=== PATIENT | female | born 1995 | race Hispanic/Latino ===

== ENCOUNTER 2023-05-05 17:59 | Emergency (ER) | payer OTHER ==
[~2023-05-05] VITALS: Ht 157.5 cm; Wt 58.1 kg
[2023-05-05 18:00] VITALS: BP 131/87; PULSE 81; RESP 16
[2023-05-05 19:18] LABS: BASOPHILS # (AUTO) 0.03 K/uL (0.00-0.20); BASOPHILS % (AUTO) 0.3 % (0.0-5.0); EOSINOPHILS # (AUTO) 0.03 K/uL (0.00-0.70); EOSINOPHILS % (AUTO) 0.3 % (0.0-8.0); HEMATOCRIT 45.2 % (36-48); IMMATURE GRANULOCYTE ABSOLUTE 0.04 K/uL (0-1); LYMPHOCYTES # (AUTO) 1.9 K/uL (1.0-4.8); LYMPHOCYTES % (AUTO) 17.6 % (21.0-51.0); MEAN CORPUSCULAR HEMOGLOBIN 32.3 pg (27.0-33.0); MEAN CORPUSCULAR HGB CONC 34.5 g/dL (32.0-36.0); MEAN CORPUSCULAR VOLUME 93.6 fL (79-99); MONOCYTES # (AUTO) 1.1 K/uL (0.1-1.0); MONOCYTES % (AUTO) 9.8 % (3.0-13.0); NEUTROPHILS # (AUTO) 7.6 K/uL (1.8-7.7); NEUTROPHILS % (AUTO) 71.6 % (40.0-77.0); PLATELET COUNT (AUTO) 275 K/uL (130-400); RED BLOOD CELL COUNT(AUTO) 4.83 MIL/uL (4.00-5.50); RED CELL DISTRIBUTION WIDTH 11.9 % (11.0-15.5); WHITE BLOOD COUNT (AUTO) 10.7 K/uL (4.8-10.8)
[2023-05-05 19:26] LABS: CREATININE 0.9 mg/dL (0.5-1.5); POTASSIUM 3.7 mmol/L (3.5-5.1)
[2023-05-05 19:29] LABS: ADD UA MICROSCOPIC YES; APPEARANCE,URINE CLOUDY (CLEAR); BACTERIA,URINE MOD /HPF (None Seen); BILIRUBIN,URINE NEGATIVE (NEGATIVE); COLOR,URINE YELLOW (YELLOW); GLUCOSE, URINE (UA) NEGATIVE (NEGATIVE); KETONES,URINE 100 mg/dL (NEGATIVE); LEUKOCYTE ESTERASE ,URINE 75 Leu/uL (NEGATIVE); MUCUS,URINE FEW LPF (None Seen); NITRATE,URINE NEGATIVE (NEGATIVE); PH,URINE 5.5 (5.0-8.0); PROTEIN,URINE 30 mg/dL (NEGATIVE); SQUAMOUS EPITHELIAL CELL,UR MANY /HPF (0-2)
[2023-05-05 19:30] LABS: HCG,QUALITATIVE URINE NEGATIVE (NEGATIVE)
[2023-05-05 19:31] LABS: ALBUMIN 4.4 g/dL (3.5-5.0); BILIRUBIN,TOTAL 0.9 mg/dL (0.2-1.0); TOTAL PROTEIN, SERUM 7.4 g/dL (6.0-8.3)
[2023-05-05] MEDS ORDERED: DICYCLOMINE HCL 10 MG/5 ML ML PO ONE (21:00)
[2023-05-05] MEDS ORDERED: LIDOCAINE HCL 2% VISCOUS 15 ML UDCUP PO ONE (21:00)
[2023-05-05] MEDS ORDERED: ONDANSETRON ODT 4MG TAB SL ONE (21:00)
[2023-05-05] MEDS ORDERED: FAMOTIDINE 20MG TAB PO ONE (21:00)
[2023-05-05] MEDS ORDERED: MAG/ALUM/SIMETH 30 ML UDCUP PO ONE (21:00)
[2023-05-05] MEDS ORDERED: FAMO20TA8 PO (21:52)
[2023-05-05] MEDS ORDERED: MACR100 PO (21:52)
[2023-05-05] MEDS ORDERED: DICY20TA2 PO (21:52)
== END 2023-05-05 22:11 | disposition home or self-care (01) ==
LOC: EDH 17:59
DX: N39.0 Urinary tract infection, site not specified (principal); K29.00 Acute gastritis without bleeding
CPT/HCPCS: 36415; 76705; 80053; 81001; 81025; 82150; 83690; 85025; 87088